=== PATIENT | male | born 1995 | race Caucasian/White ===

== ENCOUNTER 2017-03-14 08:13 | Emergency (ER) | payer OTHER ==
--- NOTE | 2017-03-14 09:31 | ER PHYSICIAN DOCUMENTATION ---
Physician Documentation [facility] Name:Jhon Caceres Age:21 yrs Sex:Male :1995 Arrival Date:03/14/2017 Time:08:13 Bed1 Private MD: Luc Neal Disposition: 03/14 09:25 Chart complete. cd Disposition: 03/14/17 09:21 Discharged to Home/Self Care. Impression: Strain - of Right Hamstrings and Calf Muscles. - Condition is Good. - Discharge Instructions: STRAINED MUSCLE Extremity - MUSCLE STRAIN, Extremity. - Medical Reconciliation form form. - Follow up: Private Physician; When: As needed; Reason: Worsening of condition. - Problem is new. - Symptoms are unchanged. - Notes: Rest for 7 days. Jim Wrap for 7 days. Ice Packs for 2 days. Take Ibuprofen 600mg by mouth every 6 hours with food for 4 - 5 days. No active Sports Participation for 7 days. HPI: 08:20 This 21 yrs old Male presents to ER via Private Vehicle with complaints of cd Leg Pain - RIGHT. 08:20 The patient presents with pain, that is acute. The complaints affect the right cd hamstring and right calf. Context: The problem was sustained outdoors, resulted from an unknown cause, the patient can partially bear weight, the patient is able to ambulate. Onset: The symptom(s)/episode began/occurred acutely, yesterday. Associated signs and symptoms: The patient has no apparent associated signs or symptoms. 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 No previous history of Blood Clots.. Historical: - Allergies: No known drug Allergies; - Home Meds: 1. None - PMHx: None; - PSHx: elbow; - Tetanus: unknown will f/u with PCP. - Ebola Screening: : Patient denies exposure to infectious person. Patient denies travel to an Ebola-affected area in the 21 days before illness onset. . - Social history: Smoking status: Patient states was never smoker of tobacco. Patient/guardian denies using alcohol, marijuana. ROS: 08:30 Constitutional: Negative for chills, fever. cd 08:30 MS/extremity: Positive for tenderness, of the right calf and posterior aspect of right knee and right hamstring, Negative for ecchymosis, erythema, paresthesias, tingling, warmth. 08:30 Skin: Negative for acute changes. Exam: 08:30 Back: No spinal tenderness. No costovertebral tenderness. Full range of motion. cd 08:30 Skin: Warm, dry with normal turgor. Normal color with no rashes, no lesions, and no cd evidence of cellulitis. 08:30 Neuro: Awake and alert, GCS 15, oriented to person, place, time, and situation. Cranial nerves II-XII grossly intact. Motor strength 5/5 in all extremities. Sensory grossly intact. Cerebellar exam normal. Normal gait. 08:30 Constitutional: The patient appears alert, awake, non-diaphoretic, non-toxic, in obvious distress, mildly distressed. 08:30 Musculoskeletal/extremity: Extremities: grossly normal except: noted in the right calf and posterior aspect of right knee and right hamstring: pain, ROM: limited active range of motion due to pain, Circulation is intact in all extremities. Sensation intact. Weight bearing: able to fully bear weight, Tendon exam: postive for pain to palpation at the insertion of the Hamstring Muscles and mid calf muscles. No signs of Gastrocnemius Muscle rupture. No cords palpated.. Vital Signs: 08:26 BP 154 / 93; Pulse 83; Resp 18; Pulse Ox 96% on R/A; Pain 5/10; st MDM: 08:30 Data interpreted: Pulse oximetry: on room air is 96 %. Interpretation: normal. cd 08:45 Differential diagnosis: Muscle Strain, DVT. cd 09:15 Data reviewed: vital signs, nurses notes, old medical records, radiologic studies, and cd as a result, I will discharge patient. 09:19 Patient medically screened. cd 09:22 Counseling: I had a detailed discussion with the patient and/or guardian regarding: the cd historical points, exam findings, and any diagnostic results supporting the discharge/admit diagnosis, radiology results, the need for outpatient follow up, for a recheck, with the patient's primary care provider, to return to the emergency department if symptoms worsen or persist or if there are any questions or concerns that arise at home. 03/14 10:32 Order name: US EXT LOWER RIGHT [id number] EDKS 03/14 09:29 Order name: ORTHO: 6" Jim Wrap; Complete Time: : st Dispensed Medications: No medications were administered Signatures: Twombly, Summer, RN RN Luc Smith MD MD cd
--- NOTE | 2017-03-14 09:31 | ER NURSING DOCUMENTATION ---
Nurse's Notes [facility] Name:John Caceres Age:21 yrs Sex:Male :1995 Arrival Date:03/14/2017 Time:08:13 Bed1 Private MD: Diagnosis:Strain-of Right Hamstrings and Calf Muscles Presentation: 03/14 08:24 Presenting complaint: Patient states: pt has right calf pain that started yesterday. pt st can not remember a specific event that started the pain. Transition of care: Home. 08:24 Method Of Arrival: Private Vehicle st 08:24 Acuity: [place] 3 st Triage Assessment: 08:25 General: Appears in no apparent distress, Behavior is cooperative. Pain: Complains of st pain in posterior aspect of right knee and right calf Pain currently is 5 out of 10 on a pain scale. Pain began 1 day ago Aggravated by movement. Neuro: No deficits noted. Cardiovascular: No deficits noted. Respiratory: No deficits noted. GI: No deficits noted. Musculoskeletal: Circulation, motion, and sensation intact Capillary refill < 3 seconds Swelling absent Tenderness present in posterior aspect of right knee and right calf. Historical: - Allergies: No known drug Allergies; - Home Meds: 1. None - PMHx: None; - PSHx: elbow; - Tetanus: unknown will f/u with PCP. - Ebola Screening: : Patient denies exposure to infectious person. Patient denies travel to an Ebola-affected area in the 21 days before illness onset. . - Social history: Smoking status: Patient states was never smoker of tobacco. Patient/guardian denies using alcohol, marijuana. Screenin:27 Infectious Disease Risk None. Abuse screen: Denies threats or abuse. Denies injuries st from another. Nutritional screening: No deficits noted. Vital Signs: 08:26 BP 154 / 93; Pulse 83; Resp 18; Pulse Ox 96% on R/A; Pain 5/10; st ED Course: 08:17 Patient arrived in ED. ama 08:24 Twombsummer, RN is Primary Nurse. st 08:[address] 08:27 Valuables Remains with patient Patient has correct armband on for positive st identification. Bed in low position. 08:50 Patient moved to [facility]. mk 09:10 Patient moved back from [facility]. mk 09:10 Jim wrap to right knee and right calf. st 09:19 Luc Baig MD is Attending Physician. cd Administered Medications: No medications were administered Outcome: : Discharge ordered by . cd : Discharged to home ambulatory. : Condition: improved : Discharge instructions given to patient, Instructed on discharge instructions, follow up and referral plans. medication usage, Ortho Care : Patient left the ED. 03/15 11:02 Discharge F/U Call: Spoke with: patient. other: Name: pt states that he is doing much st better. pt has no questions or concerns. Signatures: Soraya Ayala, RN RN Luc Smith MD MD cd Kimbro, Marcy mk Averdick, Andrew, Reg Reg ama
--- NOTE | 2017-03-14 10:29 | US REPORT ---
EXAM:US EXT ILEANA INDICATION: Right lower extremity pain. Evaluate for deep vein thrombosis. COMPARISON:None TECHNIQUE:Telles scale compression, color Doppler, and spectral Doppler interrogation was performed of the deep veins of the right leg. FINDINGS: The right common femoral, superficial femoral, and popliteal veins show normal compressibil ity, flow, and augmentation. No intraluminal thrombus is demonstrated. There is no evidence for super ficial vein thrombosis. No soft tissue mass or Ahuja's cyst is demonstrated. IMPRESSION:Negative for deep vein thrombosis in the right leg. Final Electronic Signature: This report was electronically signed by Virgilio Mccormick MD on 03/14/2017 10:26 AM. jorge /
== END 2017-03-14 09:30 | disposition home or self-care (01) ==
LOC: ER 08:13
DX: S86.811A Strain of other muscle(s) and tendon(s) at lower leg level, right leg, initial encounter (principal); Y92.321 Football field as the place of occurrence of the external cause; Y93.62 Activity, american flag or touch football; Y99.0 Civilian activity done for income or pay
CPT/HCPCS: 99284